=== PATIENT | male | born 1970 | race Caucasian/White ===

== ENCOUNTER 2017-10-31 10:11 | Inpatient (IN) | payer OTHER ==
[2017-10-31 10:48] VITALS: BMI 26.2
--- NOTE | 2017-10-31 14:53 | HP ---
CIWA Score - CIWA Score Nausea/Vomitin Muscle Tremors: 4-Moderate,w/Arms Extend Anxiety: 3 Agitation: 3 Paroxysmal Sweats: No Perspiration Orientation: 0-Oriented Tacttile Disturbances: 0-None Auditory Disturbances: 0-None Visual Disturbances: 0-None Headache: 0-None Present CIWA-Ar Total Score: [address] [facility] Chief Complaint: alcohol and benzodiazepine withdrawal sx Allergies/Adverse Reactions: Allergies Allergy/AdvReac Type Severity Reaction Status Date / Time No Known Allergies Allergy Verified 10/31/17 11:55 History of Present Illness: 47 yo m with h/o OUD, severe on otp 205mg daily ldm today was sent for inaptietn detoxification form alchol and benzoidazepines because of withdrwal sx when he does not use and h/o seizures, no h/o DTs or ERNST. PMHX anxiety, depressio and insomna , thristy. pateit is nodding off on current methadone dose of 205, will decrease dose by 10% to 180 while being detoxed with benzoidazepiens becasue of syneergistic effect. Exam Limitations: No Limitations - Ebola screening Have you traveled outside of the country in the last 21 days: No Have you had contact with anyone from an Ebola affected area: No Have you been sick,other than usual withdrawal symptoms: Yes Do you have a fever: No - Review of Systems Constitutional: Chills, Diaphoresis, Night Sweats, Changes in sleep, Weight Stable EENT: reports: No Symptoms Reported Respiratory: reports: No Symptoms reported Cardiac: reports: No Symptoms Reported GI: reports: Diarrhea, Nausea, Poor Appetite, Poor Fluid Intake, Indigestion, Abdominal cramping : reports: No Symptoms Reported Musculoskeletal: reports: No Symptoms Reported Integumentary: reports: Flushing, Sweating Endocrine: reports: Increased Thirst Hematology: reports: No Symptoms Reported Psychiatric: reports: Judgement Intact, Mood/Affect Appropiate, Orientated x3, Anxious, Depressed Other Systems: Reviewed and Negative Patient History - Patient Medical History Hx Anemia: No Hx Asthma: No Hx Chronic Obstructive Pulmonary Disease (COPD): No Hx Cancer: No Hx Cardiac Disorders: No Hx Congestive Heart Failure: No Hx Hypertension: Yes (not taking meds) Hx Hypercholesterolemia: Yes (not taking meds) Hx Pacemaker: No HX Cerebrovascular Accident: No Hx Seizures: Yes (r/t head trauma-last episode was in 2014, withdrawal seziures as well) Hx Dementia: No Hx Diabetes: Yes (currently not on treatment) Hx Gastrointestinal Disorders: No Hx Liver Disease: No Hx Genitourinary Disorders: No Hx Sexually Transmitted Disorders: No Hx Renal Disease (ESRD): No Hx Thyroid Disease: No Hx Human Immunodeficiency Virus (HIV): No Hx Hepatitis C: Yes (untreated) Hx Depression: Yes Hx Suicide Attempt: Yes (cut right wrist at age 20, si at this time) Hx Bipolar Disorder: Yes (no meds) Hx Schizophrenia: No - Patient Surgical History Past Surgical History: No Hx Neurologic Surgery: No Hx Cataract Extraction: No Hx Cardiac Surgery: No Hx Lung Surgery: No Hx Breast Surgery: No Hx Breast Biopsy: No Hx Abdominal Surgery: No Hx Appendectomy: No Hx Cholecystectomy: No Hx Genitourinary Surgery: No Hx Section: No Hx Orthopedic Surgery: No Anesthesia Reaction: No - PPD History Previous Implant?: Yes Documented Results: Negative w/o proof Implanted On Prior [facility] Admission?: No PPD to be Administered?: Yes - Reproductive History Patient is a Female of Child Bearing Age (11 -55 yrs old): No Patient : No - Smoking Cessation Smoking history: Current every day smoker Have you smoked in the past 12 months: Yes Aproximately how many cigarettes per day: 10 Hx Chewing Tobacco Use: No Initiated information on smoking cessation: Yes 'Breaking Loose' booklet given: 10/31/17 - Substance & Tx. History Hx Alcohol Use: Yes Hx Substance Use: Yes Substance Use Type: Alcohol, Cocaine, Heroin, Marijuana, Opiates, Prescribed, Tranquilizers Hx Substance Use Treatment: Yes (MMTP< first admission to [facility]) - Substances Abused Cocaine Route: Injection Frequency: Daily Amount used: $300 Age of first use: 16 Date of Last Use: 10/31/17 Alcohol-vodka/rum/beer Route: Oral Frequency: Daily Amount used: 3 pts./3-6 pks. Age of first use: 16 Date of Last Use: 10/30/17 Xanax Route: Oral Frequency: Daily Amount used: 4 mg. Age of first use: 45 Date of Last Use: 10/31/17 Family Disease History - Family Disease History Family History: Denies Admission Physical Exam [facility] - Vital Signs Vital Signs: Vital Signs - 24 hr 10/31/17 10:43 Temperature 97.6 F Pulse Rate 72 Respiratory 18 Rate Blood Pressure 123/83 - Physical General Appearance: Yes: Nourished, Appropriately Dressed, Disheveled, Mild Distress, Thin, Tremorous, Irritable, Sweating, Anxious HEENTM: Yes: Within Normal Limits, EOMI, Hearing grossly Normal, Normal ENT Inspection, Normocephalic, Normal Voice, MERCEDES, Pharynx Normal Respiratory: Yes: Within Normal Limits, Chest Non-Tender, Lungs Clear, Normal Breath Sounds, No Respiratory Distress, No Accessory Muscle Use Neck: Yes: Within Normal Limits, No masses,lesions,Nodules, Supple, Trachea in good position Breast: Yes: Breast Exam Deferred Cardiology: Yes: Within Normal Limits, Regular Rhythm, Regular Rate, S1, S2 Abdominal: Yes: Within Normal Limits, Normal Bowel Sounds, Non Tender, Flat, Soft, Increased Bowel Sounds Genitourinary: Yes: Within Normal Limits Back: Yes: Within Normal Limits, Normal Inspection Musculoskeletal: Yes: full range of Motion, Gait Steady, Pelvis Stable, Back pain, Joint Stiffness Extremities: Yes: Normal Capillary Refill, Normal Range of Motion, Non-Tender, Tremors Neurological: Yes: engineering technologist II-XII NML intact, Fully Oriented, Alert, Motor Strength 5/5, Normal Response, Depressed Affect Integumentary: Yes: Normal Color, Warm, Diaphoresis, Moist, Track Goss Lymphatic: Yes: Within Normal Limits - Addiitonal Findings: withdrawal sx - Diagnostic (1) Alcohol dependence with uncomplicated withdrawal Current Visit: Yes Status: Acute (2) Sedative, hypnotic or anxiolytic dependence with withdrawal, uncomplicated Current Visit: Yes Status: Acute (3) Opioid dependence on agonist therapy Current Visit: Yes Status: Acute (4) Intravenous drug user Current Visit: Yes Status: Acute (5) Hepatitis C Current Visit: Yes Status: Acute (6) Depression Current Visit: Yes Status: Acute (7) Dehydration Current Visit: Yes Status: Acute Cleared for Admission [facility] - Detox or Rehab [facility] Level of Care: Medically Managed Detox Regimen/Protocol: Valium [facility] Breath Alcohol Content Breath Alcohol Content: 0 Urine Drug Screen - Results Drug Screen Negative: No Urine Drug Screen Results: THC-Marijuana, FIDENCIO-Cocaine, BZO-Benzodiazepines, MTD- Methadone, TCA-Tricyclic Antidepress
[2017-10-31] MEDS ORDERED: MENTHOL/PHENOL 1 EACH UD MM PRN (14:57)
[2017-10-31] MEDS ORDERED: IBUPROFEN 400 MG TABLET (FP) PO PRN (14:57)
[2017-10-31] MEDS ORDERED: MAG HYDROX/AL HYDROX/SIMETH 30 ML UNIT-DOSE CUP PO PRN (14:57)
[2017-10-31] MEDS ORDERED: ACETAMINOPHEN 325 MG TABLET (FP) PO PRN (14:57)
[2017-10-31] MEDS ORDERED: MAGNESIUM HYDROX 2400MG/30ML ORAL SUSPENSION 30 ML CUP PO PRN (14:57)
[2017-10-31] MEDS ORDERED: P-EPHED 60MG/TRIPROLIDI 2.5MG TABLET PO PRN (14:57)
[2017-10-31] MEDS ORDERED: guaiFENesin/D-METHORPHAN HB 10 ML UNIT-DOSE CUPS PO PRN (14:57)
[2017-10-31] MEDS ORDERED: LOPERAMIDE HCL 2 MG CAPSULE PO PRN (14:57)
[2017-10-31] MEDS ORDERED: MAGNESIUM CITRATE 300 ML BOTTLE PO PRN (14:57)
[2017-10-31] MEDS ORDERED: NICOTINE POLACRILEX 2 MG GUM BUC PRN (14:57)
[2017-10-31] MEDS ORDERED: diazePAM 5 MG TABLET PO ONE (15:20)
[2017-10-31] MEDS: NICOTINE 14 MG/24 HOURS TOPICAL PATCH TD SCH (16:17)
--- NOTE | 2017-10-31 17:55 | PN ---
S Progress Note Note: Psychiatric nurse practitioner note: Flat Folder attempted to see patient for psychiatric consultation but patient was sedated and unable to answer questions. Psychiatric consultation deferred.
[2017-10-31] MEDS: diazePAM 5 MG TABLET PO PRN (18:04)
[2017-10-31 19:44] LABS: URINE APPEARANCE TURBID; URINE BILIRUBIN NEGATIVE (<2.0 mg/dL); URINE BLOOD NEGATIVE (NEGATIVE); URINE COLOR AMBER; URINE GLUCOSE (UA) NEGATIVE (NEGATIVE); URINE KETONE NEGATIVE (NEGATIVE); URINE LEUK ESTERASE TRACE (NEGATIVE); URINE NITRITE NEGATIVE (NEGATIVE); URINE PROTEIN NEGATIVE (NEGATIVE); URINE UROBILINOGEN 4.0 E.U/dl mg/dL (0.2-1.0)
[2017-10-31 20:15] LABS: EPI CELLS RARE /HPF (FEW); URINE MUCUS MANY
[2017-10-31] MEDS: diazePAM 5 MG TABLET PO SCH (22:44)
[2017-10-31] MEDS: MELATONIN 5 MG TABLETS PO PRN (22:44)
[2017-10-31] MEDS: THIAMINE HCL 100 MG TABLET (FP) PO SCH (22:44)
[2017-11-01] MEDS ORDERED: METHADONE HCL 10 MG TABLET ONE (04:30)
[2017-11-01] MEDS ORDERED: METHADONE HCL 40 MG DISPERSABLE TABLET ONE (04:30)
[2017-11-01] MEDS ORDERED: METHADONE HCL 10 MG TABLET PO SCH (06:00)
[2017-11-01] MEDS: diazePAM 5 MG TABLET PO SCH ×3 (06:00→22:43)
[2017-11-01] MEDS: METHADONE 160 MG, METHADONE 20 MG PO SCH (06:00)
[2017-11-01] MEDS ORDERED: TRIMETHOBENZAMIDE HCL 200MG/2ML INJ IM PRN (09:39)
--- NOTE | 2017-11-01 10:07 | EKG ---
Test Reason : Blood Pressure : / mmHG Vent. Rate : 062 BPM Atrial Rate : 062 BPM P-R Int : 158 ms QRS Dur : 094 ms QT Int : 472 ms P-R-T Axes : 054 059 064 degrees QTc Int : 479 ms NORMAL SINUS RHYTHM NORMAL ECG NO PREVIOUS ECGS AVAILABLE Confirmed by DARA SINGH MD ([id number]) on 11/01/2017 10:07:30 AM Referred By: Confirmed By:DARA SINGH MD
[2017-11-01 10:16] LABS: HEMOGLOBIN 13.2 GM/dL (11.7-16.9); MCH 31.5 pg (25.7-33.7); MCHC 33.8 g/dl (32.0-35.9); MEAN CELL VOLUME 93.2 fl (80-96); MEAN PLT VOLUME 10.9 fl (7.5-11.1); PLATELET COUNT 178 K/MM3 (134-434); RBC 4.19 M/mm3 (4.00-5.60); RDW 13.1 % (11.9-15.9); WHITE BLOOD COUNT 7.9 K/mm3 (4.0-10.0)
[2017-11-01 10:27] LABS: CHLORIDE 103 mmol/L (98-107); SODIUM 143 mmol/L (136-145)
[2017-11-01 10:36] LABS: ALBUMIN 3.6 g/dl (3.4-5.0); ALK PHOS 57 U/L (45-117); ANION GAP 7 (8-16); BILIRUBIN,TOTAL 0.2 mg/dL (0.2-1.0); BLOOD UREA NITROGEN 12 mg/dL (7-18); CALCIUM 8.5 mg/dL (8.5-10.1); CO2 33 mmol/L (21-32); CREATININE 0.8 mg/dL (0.7-1.3); GLUCOSE,RANDOM 109 mg/dL (74-106); SGOT/AST 22 U/L (15-37); SGPT/ALT 29 U/L (12-78); TOT PROT 6.9 g/dl (6.4-8.2)
[2017-11-01] MEDS: NICOTINE 14 MG/24 HOURS TOPICAL PATCH TD SCH (10:41)
[2017-11-01] MEDS: diazePAM 5 MG TABLET PO PRN ×3 (10:41→19:11)
[2017-11-01] MEDS: LIDOCAINE 5% TOPICAL PATCH TP SCH (10:41)
[2017-11-01] MEDS: PRENATAL VITAMINS W/ FOLIC ACID TABLET (FP) PO SCH (10:41)
--- NOTE | 2017-11-01 13:29 | PN ---
S CIWA - CIWA Score Nausea/Vomitin Muscle Tremors: 3 Anxiety: 3 Agitation: 1-Slight > Activity Paroxysmal Sweats: 3 Orientation: 0-Oriented Tacttile Disturbances: 0-None Auditory Disturbances: 0-None Visual Disturbances: 2-Mild Sensitivity Headache: 3-Moderate CIWA-Ar Total Score: 18 BHS Progress Note (SOAP) Subjective: Nausea, Diarrhea, Sweating, Tremors, H/A, Anxious, Stomach Cramping, Body Aches. Objective: PATIENT A & O X 3, OBSERVED AMBULATING ON UNIT. NO ACUTE DISTRESS. 11/01/17 13:27 Vital Signs Temperature 98.6 F 11/01/17 09:33 Pulse Rate 84 11/01/17 09:33 Respiratory Rate 18 11/01/17 09:33 Blood Pressure 117/74 11/01/17 09:33 O2 Sat by Pulse Oximetry (%) Laboratory Tests 10/31/17 10/31/17 11/01/17 12:28 19:00 05:50 WBC 7.9 RBC 4.19 Hgb 13.2 Hct 39.0 MCV 93.2 MCH 31.5 MCHC 33.8 RDW 13.1 Plt Count 178 MPV 10.9 Sodium Potassium Chloride Carbon Dioxide Anion Gap BUN Creatinine Creat Clearance w eGFR POC Glucometer 118 Random Glucose Calcium Total Bilirubin AST ALT Alkaline Phosphatase Total Protein Albumin Urine Color Shanae Urine Appearance Turbid Urine pH 5.0 Ur Specific [place] 1.024 Urine Protein Negative Urine Glucose (UA) Negative Urine Ketones Negative Urine Blood Negative Urine Nitrite Negative Urine Bilirubin Negative Urine Urobilinogen 4.0 e.u/dl Ur Leukocyte Esterase Trace Urine WBC (Auto) None Urine RBC (Auto) None Ur Epithelial Cells Rare Urine Mucus Many 11/01/17 11/01/17 05:50 06:02 WBC RBC Hgb Hct MCV MCH MCHC RDW Plt Count MPV Sodium 143 Potassium 4.0 Chloride 103 Carbon Dioxide 33 H Anion Gap 7 L BUN 12 Creatinine 0.8 Creat Clearance w eGFR > 60 POC Glucometer 129 Random Glucose 109 H Calcium 8.5 Total Bilirubin 0.2 AST 22 ALT 29 Alkaline Phosphatase 57 Total Protein 6.9 Albumin 3.6 Urine Color Urine Appearance Urine pH Ur Specific [place] Urine Protein Urine Glucose (UA) Urine Ketones Urine Blood Urine Nitrite Urine Bilirubin Urine Urobilinogen Ur Leukocyte Esterase Urine WBC (Auto) Urine RBC (Auto) Ur Epithelial Cells Urine Mucus LABS NOTED. RPR, HIV AB RESULTS PENDING. 11/01/17 13:28 Assessment: 11/01/17 13:27 WITHDRAWAL SYMPTOMS. Plan: CONTINUE DETOX. INCREASE DAILY PO FLUID INTAKE. PRN IMMODIUM FOR DIARRHEA.
--- NOTE | 2017-11-01 17:35 | CONSULT ---
[facility] Psychiatric Consult - Data Date of interview: 11/01/17 Admission source: [facility] Identifying data: First admission to [facility] for this 47 y/o male seeking detox treatment on for alcohol,xanax,marihuana,cocaine and opiod dependence.Patient is ,a father of five,homeless,unemployed and supported on SSI benefits. Substance Abuse History: Confirmed by the patient in this interview.Details in current [facility] report : Smoking history: Current every day smoker. Have you smoked in the past 12 months: Yes. Aproximately how many cigarettes per day: 10. Hx Chewing Tobacco Use: No. Initiated information on smoking cessation: Yes. 'Breaking Loose' booklet given: 10/31/17. - Substance & Tx. History. Hx Alcohol Use: Yes. Hx Substance Use: Yes. Substance Use Type: Alcohol, Cocaine , Heroin, Marijuana, Opiates, Prescribed, Tranquilizers. Hx Substance Use Treatment: Yes (MMTP< first admission to [facility]). - Substances Abused. Cocaine. Route: Injection. Frequency: Daily. Amount used: $300. Age of first use: 16. Date of Last Use: 10/31/17. Alcohol-vodka/rum/beer. Route: Oral. Frequency: Daily. Amount used: 3 pts./3-6 pks. Age of first use: 16. Date of Last Use: 10/30/17. Xanax. Route: Oral. Frequency: Daily. Amount used: 4 mg. Age of first use: 45. Date of Last Use: 10/31/17 Medical History: Diabetes mellitus,dyslipidemia,antecedent of head trauma and seizures,hepatitis C (untreated) and hypertension.No reported allergies. Psychiatric History: Patient admits to a history of 3-5 psychiatric hospitalizations ([facility]).Early onset of mental illness (age 10).Diagnosed with Schizophrenia.Mr Armijo reports that he gets his psychiatric outpatient services at the [facility] clinic on [address] [place].Patient is maintained on a regimen of lexapro 20 mg/day + trilafon 24 mg po bid (confirmed by pharmacy claims of 10/24/17 @ [facility]).Recently discharged from an inpatient psychiatric service.Three months ago,as per self- report.Patient admits to a remote history os suicide attempt (ag 20) via self- mutilation (wrist-cutting).Currently on methadone maintenance (205 mg/day).Dose has been lowered to 180 mg/day since admission to [address] [place] [address] due to oversedation. Physical/Sexual Abuse/Trauma History: Patient denies history of abuse. Additional Comment: Urine Drug Screen Results: THC-Marijuana, FIDENCIO-Cocaine, BZO- Benzodiazepines, MTD-Methadone, TCA-Tricyclic Antidepressant.Noted. Mental Status Exam - Mental Status Exam Alert and Oriented to: Time, Place, Person Cognitive Function: Grossly Intact Patient Appearance: Disheveled Mood: Nervous, Withdrawn Affect: Mood Congruent, Constricted Patient Behavior: Fatigued, Talkative, Cooperative Speech Pattern: Clear (slow,spontaneous) Voice Loudness: Normal Thought Process: Goal Oriented Thought Disorder: Not Present Hallucinations: Denies Suicidal Ideation: Denies Homicidal Ideation: Denies Insight/Judgement: Poor Sleep: Well Appetite: Good Muscle strength/Tone: Normal Gait/Station: Normal (observed ambulatiing on the unit) Psychiatric Findings - Problem List ([place] 1, 2,3) (1) Schizophrenia Current Visit: Yes Status: Chronic (2) Alcohol dependence with uncomplicated withdrawal Current Visit: Yes Status: Acute (3) Opioid dependence on agonist therapy Current Visit: Yes Status: Acute (4) Sedative, hypnotic or anxiolytic dependence with withdrawal, uncomplicated Current Visit: Yes Status: Acute (5) Cannabis dependence Current Visit: Yes Status: Acute (6) Cocaine dependence Current Visit: Yes Status: Acute - Initial Treatment Plan Initial Treatment Plan: Psychoeducation.Sleep hygiene.Detoxification in progress.Will hold trilafon for another 24 hours and observe.If further improvement of cognition in AM,will resume trilafon at 8 mg po bid + lexapro 20 mg po daily.Discussed with the patient.Mr Armijo has expressed his agreement to this plan of care.Observation.
[2017-11-01] MEDS: hydrOXYzine PAMOATE 25 MG CAPSULE (FP) PO PRN (17:38)
[2017-11-01] MEDS: THIAMINE HCL 100 MG TABLET (FP) PO SCH (22:43)
[2017-11-01] MEDS: MELATONIN 5 MG TABLETS PO PRN (22:43)
[2017-11-01] MEDS: LIDOCAINE PATCH REMOVAL MC SCH (22:43)
[2017-11-02] MEDS: diazePAM 5 MG TABLET PO PRN ×2 (02:17→16:38)
[2017-11-02] MEDS ORDERED: METHADONE HCL 40 MG DISPERSABLE TABLET ONE (03:59)
[2017-11-02] MEDS ORDERED: METHADONE HCL 10 MG TABLET ONE (03:59)
[2017-11-02] MEDS: METHADONE 160 MG, METHADONE 20 MG PO SCH (05:30)
[2017-11-02] MEDS: diazePAM 5 MG TABLET PO SCH ×2 (10:31→22:43)
[2017-11-02] MEDS: LIDOCAINE 5% TOPICAL PATCH TP SCH (10:32)
[2017-11-02] MEDS: PRENATAL VITAMINS W/ FOLIC ACID TABLET (FP) PO SCH (10:32)
[2017-11-02] MEDS: NICOTINE 14 MG/24 HOURS TOPICAL PATCH TD SCH (10:32)
--- NOTE | 2017-11-02 15:02 | PN ---
S CIWA - CIWA Score Nausea/Vomitin Muscle Tremors: 3 Anxiety: 2 Agitation: 0-Normal Activity Paroxysmal Sweats: 3 Orientation: 2-Disoriented Date<2 days Tacttile Disturbances: 1-Very Mild Itch/Numbness Auditory Disturbances: 0-None Visual Disturbances: 1-Very Mild Sensitivity Headache: 0-None Present CIWA-Ar Total Score: 17 BHS Progress Note (SOAP) Subjective: Vomiting, H/A, Stomach Cramping, Sweating, Tremors, Fatigue, Diarrhea. Objective: PATIENT A & O X 2 (UNCERTAIN ABOUT CURRENT DAY / DATE). NO ACUTE DISTRESS. 11/02/17 15:00 Vital Signs Temperature 97.0 F L 11/02/17 13:14 Pulse Rate 85 11/02/17 13:14 Respiratory Rate 18 11/02/17 13:14 Blood Pressure 103/71 11/02/17 13:14 O2 Sat by Pulse Oximetry (%) Laboratory Tests 10/31/17 10/31/17 10/31/17 12:15 12:28 19:00 WBC RBC Hgb Hct MCV MCH MCHC RDW Plt Count MPV Sodium Potassium Chloride Carbon Dioxide Anion Gap BUN Creatinine Creat Clearance w eGFR POC Glucometer 118 Random Glucose Calcium Total Bilirubin AST ALT Alkaline Phosphatase Total Protein Albumin Urine Color Shanae Urine Appearance Turbid Urine pH 5.0 Ur Specific [place] 1.024 Urine Protein Negative Urine Glucose (UA) Negative Urine Ketones Negative Urine Blood Negative Urine Nitrite Negative Urine Bilirubin Negative Urine Urobilinogen 4.0 e.u/dl Ur Leukocyte Esterase Trace Urine WBC (Auto) None Urine RBC (Auto) None Ur Epithelial Cells Rare Urine Mucus Many RPR Titer HIV 1&2 Antibody Screen Negative HIV P24 Antigen Negative 11/01/17 11/01/17 11/01/17 05:50 05:50 05:50 WBC 7.9 RBC 4.19 Hgb 13.2 Hct 39.0 MCV 93.2 MCH 31.5 MCHC 33.8 RDW 13.1 Plt Count 178 MPV 10.9 Sodium 143 Potassium 4.0 Chloride 103 Carbon Dioxide 33 H Anion Gap 7 L BUN 12 Creatinine 0.8 Creat Clearance w eGFR > 60 POC Glucometer Random Glucose 109 H Calcium 8.5 Total Bilirubin 0.2 AST 22 ALT 29 Alkaline Phosphatase 57 Total Protein 6.9 Albumin 3.6 Urine Color Urine Appearance Urine pH Ur Specific [place] Urine Protein Urine Glucose (UA) Urine Ketones Urine Blood Urine Nitrite Urine Bilirubin Urine Urobilinogen Ur Leukocyte Esterase Urine WBC (Auto) Urine RBC (Auto) Ur Epithelial Cells Urine Mucus RPR Titer Nonreactive HIV 1&2 Antibody Screen HIV P24 Antigen 11/01/17 06:02 WBC RBC Hgb Hct MCV MCH MCHC RDW Plt Count MPV Sodium Potassium Chloride Carbon Dioxide Anion Gap BUN Creatinine Creat Clearance w eGFR POC Glucometer 129 Random Glucose Calcium Total Bilirubin AST ALT Alkaline Phosphatase Total Protein Albumin Urine Color Urine Appearance Urine pH Ur Specific [place] Urine Protein Urine Glucose (UA) Urine Ketones Urine Blood Urine Nitrite Urine Bilirubin Urine Urobilinogen Ur Leukocyte Esterase Urine WBC (Auto) Urine RBC (Auto) Ur Epithelial Cells Urine Mucus RPR Titer HIV 1&2 Antibody Screen HIV P24 Antigen LABS NOTED. Assessment: 11/02/17 15:00 WITHDRAWAL SYMPTOMS. Plan: CONTINUE DETOX. PRN TIGAN IM FOR VOMITING. ENCOURAGE AMBULATION. INCREASE DAILY PO FLUID INTAKE.
[2017-11-02] MEDS: THIAMINE HCL 100 MG TABLET (FP) PO SCH (22:43)
[2017-11-02] MEDS: LIDOCAINE PATCH REMOVAL MC SCH (22:43)
[2017-11-02] MEDS: MELATONIN 5 MG TABLETS PO PRN (22:45)
[2017-11-03] MEDS ORDERED: METHADONE HCL 10 MG TABLET ONE (04:10)
[2017-11-03] MEDS ORDERED: METHADONE HCL 40 MG DISPERSABLE TABLET ONE (04:11)
[2017-11-03] MEDS: METHADONE 160 MG, METHADONE 20 MG PO SCH (05:42)
[2017-11-03] MEDS: diazePAM 5 MG TABLET PO PRN ×2 (07:13→12:57)
[2017-11-03] MEDS: PRENATAL VITAMINS W/ FOLIC ACID TABLET (FP) PO SCH (10:39)
[2017-11-03] MEDS: LIDOCAINE 5% TOPICAL PATCH TP SCH (10:39)
[2017-11-03] MEDS: NICOTINE 14 MG/24 HOURS TOPICAL PATCH TD SCH (10:39)
[2017-11-03] MEDS: diazePAM 5 MG TABLET PO SCH ×2 (10:39→22:41)
[2017-11-03] MEDS: hydrOXYzine PAMOATE 25 MG CAPSULE (FP) PO PRN (15:05)
--- NOTE | 2017-11-03 16:08 | PN ---
BHS Progress Note (SOAP) Subjective: Chills, sweating, back pain, stomach ache Objective: 11/03/17 16:07 Last Vital Signs Temp Pulse Resp BP Pulse Ox 96 F L 80 20 101/72 11/03/17 14:35 11/03/17 14:35 11/03/17 14:35 11/03/17 14:35 Laboratory Tests 10/31/17 10/31/17 10/31/17 12:15 12:28 19:00 WBC RBC Hgb Hct MCV MCH MCHC RDW Plt Count MPV Sodium Potassium Chloride Carbon Dioxide Anion Gap BUN Creatinine Creat Clearance w eGFR POC Glucometer 118 Random Glucose Calcium Total Bilirubin AST ALT Alkaline Phosphatase Total Protein Albumin Urine Color Shanae Urine Appearance Turbid Urine pH 5.0 Ur Specific [place] 1.024 Urine Protein Negative Urine Glucose (UA) Negative Urine Ketones Negative Urine Blood Negative Urine Nitrite Negative Urine Bilirubin Negative Urine Urobilinogen 4.0 e.u/dl Ur Leukocyte Esterase Trace Urine WBC (Auto) None Urine RBC (Auto) None Ur Epithelial Cells Rare Urine Mucus Many RPR Titer HIV 1&2 Antibody Screen Negative HIV P24 Antigen Negative 11/01/17 11/01/17 11/01/17 05:50 05:50 05:50 WBC 7.9 RBC 4.19 Hgb 13.2 Hct 39.0 MCV 93.2 MCH 31.5 MCHC 33.8 RDW 13.1 Plt Count 178 MPV 10.9 Sodium 143 Potassium 4.0 Chloride 103 Carbon Dioxide 33 H Anion Gap 7 L BUN 12 Creatinine 0.8 Creat Clearance w eGFR > 60 POC Glucometer Random Glucose 109 H Calcium 8.5 Total Bilirubin 0.2 AST 22 ALT 29 Alkaline Phosphatase 57 Total Protein 6.9 Albumin 3.6 Urine Color Urine Appearance Urine pH Ur Specific [place] Urine Protein Urine Glucose (UA) Urine Ketones Urine Blood Urine Nitrite Urine Bilirubin Urine Urobilinogen Ur Leukocyte Esterase Urine WBC (Auto) Urine RBC (Auto) Ur Epithelial Cells Urine Mucus RPR Titer Nonreactive HIV 1&2 Antibody Screen HIV P24 Antigen 11/01/17 06:02 WBC RBC Hgb Hct MCV MCH MCHC RDW Plt Count MPV Sodium Potassium Chloride Carbon Dioxide Anion Gap BUN Creatinine Creat Clearance w eGFR POC Glucometer 129 Random Glucose Calcium Total Bilirubin AST ALT Alkaline Phosphatase Total Protein Albumin Urine Color Urine Appearance Urine pH Ur Specific [place] Urine Protein Urine Glucose (UA) Urine Ketones Urine Blood Urine Nitrite Urine Bilirubin Urine Urobilinogen Ur Leukocyte Esterase Urine WBC (Auto) Urine RBC (Auto) Ur Epithelial Cells Urine Mucus RPR Titer HIV 1&2 Antibody Screen HIV P24 Antigen Labs reviewed Assessment: 11/03/17 16:08 Withdrawal symptoms Plan: Continue detox Encouraged to drink more water for hydration
[2017-11-03] MEDS: LIDOCAINE PATCH REMOVAL MC SCH (22:41)
[2017-11-03] MEDS: THIAMINE HCL 100 MG TABLET (FP) PO SCH (22:41)
[2017-11-04] MEDS: hydrOXYzine PAMOATE 25 MG CAPSULE (FP) PO PRN (01:43)
[2017-11-04] MEDS ORDERED: METHADONE HCL 10 MG TABLET ONE (04:17)
[2017-11-04] MEDS ORDERED: METHADONE HCL 40 MG DISPERSABLE TABLET ONE (04:19)
[2017-11-04] MEDS: METHADONE 160 MG, METHADONE 20 MG PO SCH (05:46)
[2017-11-04 09:30] VITALS: BP 101/68; PULSE 67; TEMP 96
[2017-11-04] MEDS ORDERED: diazePAM 5 MG TABLET PO SCH (10:00)
[2017-11-04] MEDS: NICOTINE 14 MG/24 HOURS TOPICAL PATCH TD SCH (10:22)
[2017-11-04] MEDS: PRENATAL VITAMINS W/ FOLIC ACID TABLET (FP) PO SCH (10:22)
[2017-11-04] MEDS: LIDOCAINE 5% TOPICAL PATCH TP SCH (10:22)
--- NOTE | 2017-11-04 11:57 | PN ---
S Progress Note (SOAP) Subjective: DETOX COMPLETED, ALERT O X 3. NAD. Objective: 11/04/17 11:56 Vital Signs Temperature 96.0 F L 11/04/17 09:29 Pulse Rate 67 11/04/17 09:29 Respiratory Rate 18 11/04/17 09:29 Blood Pressure 101/68 11/04/17 09:29 O2 Sat by Pulse Oximetry (%) Laboratory Last Values WBC 7.9 K/mm3 (4.0-10.0) 11/01/17 05:50 RBC 4.19 M/mm3 (4.00-5.60) 11/01/17 05:50 Hgb 13.2 GM/dL (11.7-16.9) 11/01/17 05:50 Hct 39.0 % (35.4-49) 11/01/17 05:50 MCV 93.2 fl (80-96) 11/01/17 05:50 MCH 31.5 pg (25.7-33.7) 11/01/17 05:50 MCHC 33.8 g/dl (32.0-35.9) 11/01/17 05:50 RDW 13.1 % (11.9-15.9) 11/01/17 05:50 Plt Count 178 K/MM3 (134-434) 11/01/17 05:50 MPV 10.9 fl (7.5-11.1) 11/01/17 05:50 Sodium 143 mmol/L (136-145) 11/01/17 05:50 Potassium 4.0 mmol/L (3.5-5.1) 11/01/17 05:50 Chloride 103 mmol/L (98-107) 11/01/17 05:50 Carbon Dioxide 33 mmol/L (21-32) H 11/01/17 05:50 Anion Gap 7 (8-16) L 11/01/17 05:50 BUN 12 mg/dL (7-18) 11/01/17 05:50 Creatinine 0.8 mg/dL (0.7-1.3) 11/01/17 05:50 Creat Clearance w eGFR > 60 (>60) 11/01/17 05:50 POC Glucometer 129 UNITS (80-120) 11/01/17 06:02 Random Glucose 109 mg/dL (74-106) H 11/01/17 05:50 Calcium 8.5 mg/dL (8.5-10.1) 11/01/17 05:50 Total Bilirubin 0.2 mg/dL (0.2-1.0) 11/01/17 05:50 AST 22 U/L (15-37) 11/01/17 05:50 ALT 29 U/L (12-78) 11/01/17 05:50 Alkaline Phosphatase 57 U/L (45-117) 11/01/17 05:50 Total Protein 6.9 g/dl (6.4-8.2) 11/01/17 05:50 Albumin 3.6 g/dl (3.4-5.0) 11/01/17 05:50 Urine Color Shanae 10/31/17 19:00 Urine Appearance Turbid 10/31/17 19:00 Urine pH 5.0 (5.0-8.0) 10/31/17 19:00 Ur Specific [place] 1.024 (1.001-1.035) 10/31/17 19:00 Urine Protein Negative (NEGATIVE) 10/31/17 19:00 Urine Glucose (UA) Negative (NEGATIVE) 10/31/17 19:00 Urine Ketones Negative (NEGATIVE) 10/31/17 19:00 Urine Blood Negative (NEGATIVE) 10/31/17 19:00 Urine Nitrite Negative (NEGATIVE) 10/31/17 19:00 Urine Bilirubin Negative (<2.0 mg/dL) 10/31/17 19:00 Urine Urobilinogen 4.0 e.u/dl mg/dL (0.2-1.0) 10/31/17 19:00 Ur Leukocyte Esterase Trace (NEGATIVE) 10/31/17 19:00 Urine WBC (Auto) None /hpf (3-5) 10/31/17 19:00 Urine RBC (Auto) None /hpf (0-3) 10/31/17 19:00 Ur Epithelial Cells Rare /HPF (FEW) 10/31/17 19:00 Urine Mucus Many 10/31/17 19:00 RPR Titer Nonreactive (NONREACTIVE) 11/01/17 05:50 HIV 1&2 Antibody Screen Negative 10/31/17 12:15 HIV P24 Antigen Negative 10/31/17 12:15 Assessment: 11/04/17 11:56 NAD Plan: D/C PT TODAY
== END 2017-11-04 11:15 | disposition home or self-care (01) | DRG 773 ==
LOC: YASAS 10:11 → Y3N 15:12
PROVIDERS: ADMIT Internal Medicine; ATTEND Internal Medicine
PROC: HZ2ZZZZ Detoxification Services for Substance Abuse Treatment (ICD-10-PCS; principal; 2017-10-31)
DX: F11.20 Opioid dependence, uncomplicated (principal); F13.230 Sedative, hypnotic or anxiolytic dependence with withdrawal, uncomplicated; F10.230 Alcohol dependence with withdrawal, uncomplicated; F14.20 Cocaine dependence, uncomplicated; F12.20 Cannabis dependence, uncomplicated; F31.9 Bipolar disorder, unspecified; F25.9 Schizoaffective disorder, unspecified; B18.2 Chronic viral hepatitis C; E86.0 Dehydration; Z86.69 Personal history of other diseases of the nervous system and sense organs; Z91.5 Personal history of self-harm
CPT/HCPCS: 36415; 80053; 81003; 81015; 82962; 85027; 86593; 87389; 93005; 93010

== ENCOUNTER 2017-12-19 13:43 | Inpatient (IN) | payer OTHER ==
[2017-12-19 17:30] VITALS: BMI 25.0
--- NOTE | 2017-12-19 19:06 | HP ---
Admission [facility] Chief Complaint: I need to get my life back. Allergies/Adverse Reactions: Allergies Allergy/AdvReac Type Severity Reaction Status Date / Time No Known Allergies Allergy Verified 12/19/17 17:44 History of Present Illness: pt is a 47yr old male with a history of crack/cocaine. Pt is on MMTP program last dose received today with 185mg. Pending verification. Exam Limitations: No Limitations - Ebola screening Have you traveled outside of the country in the last 21 days: No Have you had contact with anyone from an Ebola affected area: No Have you been sick,other than usual withdrawal symptoms: No Do you have a fever: No - Review of Systems Constitutional: Chills EENT: reports: No Symptoms Reported Respiratory: reports: No Symptoms reported Cardiac: reports: No Symptoms Reported GI: reports: Poor Appetite, Poor Fluid Intake : reports: No Symptoms Reported Integumentary: reports: Flushing, Sweating Endocrine: reports: Excessive Sweating, Flushing, Intolerance to Cold, Intolerance to Heat Hematology: reports: No Symptoms Reported Psychiatric: reports: Judgement Intact, Mood/Affect Appropiate, Orientated x3, Agitated, Anxious Other Systems: Reviewed and Negative Patient History - Patient Medical History Hx Anemia: No Hx Asthma: No Hx Chronic Obstructive Pulmonary Disease (COPD): No Hx Cancer: No Hx Cardiac Disorders: No Hx Congestive Heart Failure: No Hx Hypertension: Yes (not taking meds) Hx Hypercholesterolemia: Yes (not taking meds) Hx Pacemaker: No HX Cerebrovascular Accident: No Hx Seizures: Yes (r/t head trauma-last episode was in 2014, withdrawal seziures as well) Hx Dementia: No Hx Diabetes: Yes (currently not on treatment) Hx Gastrointestinal Disorders: No Hx Liver Disease: No Hx Genitourinary Disorders: No Hx Sexually Transmitted Disorders: No Hx Renal Disease (ESRD): No Hx Thyroid Disease: No Hx Human Immunodeficiency Virus (HIV): No Hx Hepatitis C: Yes (untreated) Hx Depression: Yes Hx Suicide Attempt: Yes (cut right wrist at age 20, si at this time) Hx Bipolar Disorder: Yes (no meds) Hx Schizophrenia: No - Patient Surgical History Past Surgical History: No Hx Neurologic Surgery: No Hx Cataract Extraction: No Hx Cardiac Surgery: No Hx Lung Surgery: No Hx Breast Surgery: No Hx Breast Biopsy: No Hx Abdominal Surgery: No Hx Appendectomy: No Hx Cholecystectomy: No Hx Genitourinary Surgery: No Hx Section: No Hx Orthopedic Surgery: No Anesthesia Reaction: No - PPD History Previous Implant?: Yes Documented Results: Negative w/proof Date: 11/02/17 PPD to be Administered?: No - Reproductive History Patient is a Female of Child Bearing Age (11 -55 yrs old): No - Smoking Cessation Smoking history: Current every day smoker Have you smoked in the past 12 months: Yes Aproximately how many cigarettes per day: 10 Hx Chewing Tobacco Use: No Initiated information on smoking cessation: Yes 'Breaking Loose' booklet given: 12/19/17 - Substance & Tx. History Hx Alcohol Use: No Hx Substance Use: Yes Substance Use Type: Cocaine Hx Substance Use Treatment: Yes (last detox 10/2017) - Substances Abused Crack Route: Smoking Frequency: Daily Amount used: $50 Age of first use: 13 Date of Last Use: 12/18/17 Family Disease History - Family Disease History Family History: Denies Admission Physical Exam BHS - Vital Signs Vital Signs: Vital Signs - 24 hr 12/19/17 17:17 Temperature 98 F Pulse Rate 63 Respiratory 20 Rate Blood Pressure 137/88 - Physical General Appearance: Yes: Appropriately Dressed, Moderate Distress, Sweating, Anxious HEENTM: Yes: Hearing grossly Normal, Normal Voice Respiratory: Yes: Lungs Clear, Normal Breath Sounds, No Respiratory Distress Neck: Yes: No masses,lesions,Nodules Breast: Yes: Within Normal Limits Cardiology: Yes: Regular Rhythm, Regular Rate, S1, S2 Abdominal: Yes: Normal Bowel Sounds, Non Tender, Flat Genitourinary: Yes: Within Normal Limits Back: Yes: Normal Inspection Musculoskeletal: Yes: full range of Motion Extremities: Yes: Normal Capillary Refill, Tremors Neurological: Yes: Fully Oriented, Alert, Normal Response Integumentary: Yes: Normal Color Lymphatic: Yes: Within Normal Limits - Diagnostic (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 Status: Chronic (2) Cannabis dependence Current Visit: Yes Status: Chronic (3) Nicotine dependence Current Visit: Yes Status: Chronic Qualifiers: Nicotine product type: cigarettes Substance use status: uncomplicated Qualified Code(s): F17.210 - Nicotine dependence, cigarettes, uncomplicated (4) Cocaine dependence Current Visit: Yes Status: Chronic Qualifiers: Substance use status: uncomplicated (5) Hepatitis C Current Visit: Yes Status: Chronic Qualifiers: Viral hepatitis chronicity: chronic Hepatic coma status: without hepatic coma Qualified Code(s): B18.2 - Chronic viral hepatitis C Cleared for Admission S - Detox or Rehab [facility] Level of Care: Medically Managed [facility] Breath Alcohol Content Breath Alcohol Content: 0 Urine Drug Screen - Results Drug Screen Negative: No Urine Drug Screen Results: THC-Marijuana, FIDENCIO-Cocaine, BZO-Benzodiazepines Inpatient Rehab Admission - Initial Determination Are CD services needed?: Yes Free of communicable disease: Yes Not in need of hospitalization: Yes - Rehab Admission Criteria Previous failed treatment: Yes Comorbidities: Yes Lacks judgement: Yes
[2017-12-19] MEDS ORDERED: MAG HYDROX/AL HYDROX/SIMETH 30 ML UNIT-DOSE CUP PO PRN (19:07)
[2017-12-19] MEDS ORDERED: P-EPHED 60MG/TRIPROLIDI 2.5MG TABLET PO PRN (19:07)
[2017-12-19] MEDS ORDERED: MAGNESIUM CITRATE 300 ML BOTTLE PO PRN (19:07)
[2017-12-19] MEDS ORDERED: NICOTINE POLACRILEX 4 MG GUM BUC PRN (19:07)
[2017-12-19] MEDS ORDERED: LOPERAMIDE HCL 2 MG CAPSULE PO PRN (19:07)
[2017-12-19] MEDS ORDERED: guaiFENesin/D-METHORPHAN HB 10 ML UNIT-DOSE CUPS PO PRN (19:07)
[2017-12-19] MEDS ORDERED: MAGNESIUM HYDROX 2400MG/30ML ORAL SUSPENSION 30 ML CUP PO PRN (19:07)
[2017-12-19] MEDS ORDERED: ACETAMINOPHEN 325 MG TABLET (FP) PO PRN (19:09)
[2017-12-19] MEDS ORDERED: MENTHOL/PHENOL 1 EACH UD MM PRN (19:11)
[2017-12-19] MEDS: THIAMINE HCL 100 MG TABLET (FP) PO SCH (21:32)
[2017-12-19] MEDS: hydrOXYzine PAMOATE 50 MG CAPSULE (FP) PO PRN (21:34)
[2017-12-19] MEDS: MELATONIN 5 MG TABLETS PO PRN (21:34)
[2017-12-20] MEDS ORDERED: METHADONE HCL 10 MG TABLET PO SCH (07:45)
[2017-12-20] MEDS ORDERED: METHADONE HCL 10 MG TABLET ONE (07:54)
[2017-12-20] MEDS ORDERED: METHADONE HCL 40 MG DISPERSABLE TABLET ONE (07:54)
[2017-12-20] MEDS ORDERED: METHADONE HCL 5 MG TABLET ONE (07:54)
[2017-12-20] MEDS: METHADONE 160 MG, METHADONE 20 MG, METHADONE 5 MG PO SCH (10:01)
[2017-12-20] MEDS: NICOTINE 21 MG/24 HOURS TOPICAL PATCH TD SCH (10:02)
[2017-12-20] MEDS: PRENATAL VITAMINS W/ FOLIC ACID TABLET (FP) PO SCH (10:02)
[2017-12-20 10:06] LABS: HEMATOCRIT 40.7 % (35.4-49); HEMOGLOBIN 13.5 GM/dL (11.7-16.9); MCHC 33.1 g/dl (32.0-35.9); MEAN CELL VOLUME 93.5 fl (80-96); MEAN PLT VOLUME 10.1 fl (7.5-11.1); PLATELET COUNT 161 K/MM3 (134-434); RBC 4.35 M/mm3 (4.00-5.60); RDW 13.4 % (11.9-15.9); WHITE BLOOD COUNT 8.4 K/mm3 (4.0-10.0)
[2017-12-20 10:30] LABS: CHLORIDE 103 mmol/L (98-107); POTASSIUM 4.1 mmol/L (3.5-5.1); SODIUM 142 mmol/L (136-145)
[2017-12-20 11:05] LABS: ALBUMIN 3.4 g/dl (3.4-5.0); ALK PHOS 56 U/L (45-117); ANION GAP 7 (8-16); BILIRUBIN,TOTAL 0.5 mg/dL (0.2-1.0); BLOOD UREA NITROGEN 14 mg/dL (7-18); CO2 32 mmol/L (21-32); CREATININE 0.9 mg/dL (0.7-1.3); GLUCOSE,RANDOM 152 mg/dL (74-106); SGOT/AST 20 U/L (15-37); SGPT/ALT 19 U/L (12-78); TOT PROT 6.7 g/dl (6.4-8.2)
--- NOTE | 2017-12-20 11:27 | EKG ---
Test Reason : Blood Pressure : / mmHG Vent. Rate : 062 BPM Atrial Rate : 062 BPM P-R Int : 190 ms QRS Dur : 094 ms QT Int : 410 ms P-R-T Axes : 067 070 076 degrees QTc Int : 416 ms NORMAL SINUS RHYTHM NORMAL ECG WHEN COMPARED WITH ECG OF 31-OCT-2017 15:50, QT HAS SHORTENED Confirmed by JYOTI ELLINGTON MD ([id number]) on 12/20/2017 11:27:17 AM Referred By: Confirmed By:JYOTI ELLINGTON MD
--- NOTE | 2017-12-20 12:05 | HP ---
Psychiatrist Admission - Data Date of interview: 12/20/17 Admission source: 3N Identifying data: This is the first 5N inpatient rehabilitation admission for this 47 year male who is ,a father of five,homeless, unemployed and supported on SSI benefits. Medical History: Diabetes mellitus,dyslipidemia,antecedent of head trauma and seizures,hepatitis C (untreated) and hypertension. Smokes cigarettes 10 a day. On MMTP 180 mg/daily. Psychiatric History: Patient reports was diagnosed with Schizophrenia and first psychiatric contact at age of 10. He admits was hospitalizaed 4-5 times ( [facility]) most recent hospitalization 3 months ago, he is under the care of [facility] in the [place] and currently on trilophan 8 mg am and 16 mg po hs Physical/Sexual Abuse/Trauma History: denies history of abuse Vital Signs: Vital Signs - 24 hr 12/19/17 12/19/17 12/20/17 17:17 22:21 00:30 Temperature 98 F 98.4 F Pulse Rate 63 57 L Respiratory 20 18 18 Rate Blood Pressure 137/88 116/79 12/20/17 12/20/17 03:30 06:40 Temperature 98.0 F Pulse Rate 52 L Respiratory 18 16 Rate Blood Pressure 120/73 Allergies/Adverse Reactions: Allergies Allergy/AdvReac Type Severity Reaction Status Date / Time No Known Allergies Allergy Verified 12/19/17 17:44 Date of last physical exam: 12/19/17 Concur with the findings of this exam: Yes - Substance Abuse/Tx History Hx Alcohol Use: Yes Hx Substance Use: Yes Substance Use Type: Alcohol, Cocaine, Heroin Hx Substance Use Treatment: Yes Mental Status Exam - Mental Status Exam Alert and Oriented to: Time, Place, Person Cognitive Function: Good Patient Appearance: Well Groomed Mood: Hopeful Affect: Appropriate, Mood Congruent Patient Behavior: Appropriate, Cooperative Speech Pattern: Clear, Appropriate Voice Loudness: Normal Thought Process: Intact, Goal Oriented Thought Disorder: Not Present Hallucinations: Denies Suicidal Ideation: Denies Insight/Judgement: Fair Appetite: Good Muscle strength/Tone: Normal Gait/Station: Normal Psychiatric Findings - Problem List ([place] 1, 2,3) (1) Cocaine dependence Current Visit: Yes Status: Chronic Qualifiers: Substance use status: uncomplicated (2) Methadone maintenance therapy patient Current Visit: Yes Status: Chronic (3) Nicotine dependence Current Visit: Yes Status: Chronic Qualifiers: Nicotine product type: cigarettes Substance use status: uncomplicated Qualified Code(s): F17.210 - Nicotine dependence, cigarettes, uncomplicated (4) Opioid dependence on agonist therapy Current Visit: No Status: Acute (5) Schizophrenia Current Visit: No Status: Chronic - Initial Treatment Plan Initial Treatment Plan: Will continue current medications , monitor progress as needed.
[2017-12-20] MEDS: PERPHENAZINE 4 MG TABLET PO SCH (21:15)
[2017-12-20] MEDS: MELATONIN 5 MG TABLETS PO PRN (21:16)
[2017-12-20] MEDS: THIAMINE HCL 100 MG TABLET (FP) PO SCH (21:16)
[2017-12-21] MEDS ORDERED: METHADONE HCL 5 MG TABLET ONE (05:05)
[2017-12-21] MEDS ORDERED: METHADONE HCL 10 MG TABLET ONE (05:06)
[2017-12-21] MEDS ORDERED: METHADONE HCL 40 MG DISPERSABLE TABLET ONE (05:06)
[2017-12-21] MEDS: METHADONE 160 MG, METHADONE 20 MG, METHADONE 5 MG PO SCH (06:45)
[2017-12-21] MEDS: IBUPROFEN 400 MG TABLET (FP) PO PRN (07:19)
[2017-12-21] MEDS: NICOTINE 21 MG/24 HOURS TOPICAL PATCH TD SCH (10:15)
[2017-12-21] MEDS: PRENATAL VITAMINS W/ FOLIC ACID TABLET (FP) PO SCH (10:15)
[2017-12-21] MEDS: PERPHENAZINE 4 MG TABLET PO SCH ×2 (10:15→21:21)
[2017-12-21] MEDS: hydrOXYzine PAMOATE 50 MG CAPSULE (FP) PO PRN ×4 (10:17→22:19)
[2017-12-21] MEDS: THIAMINE HCL 100 MG TABLET (FP) PO SCH (21:21)
[2017-12-22] MEDS ORDERED: METHADONE HCL 10 MG TABLET ONE (05:10)
[2017-12-22] MEDS ORDERED: METHADONE HCL 5 MG TABLET ONE (05:10)
[2017-12-22] MEDS ORDERED: METHADONE HCL 40 MG DISPERSABLE TABLET ONE (05:11)
[2017-12-22] MEDS: METHADONE 160 MG, METHADONE 20 MG, METHADONE 5 MG PO SCH (07:09)
[2017-12-22] MEDS: PERPHENAZINE 4 MG TABLET PO SCH ×2 (09:48→21:18)
[2017-12-22] MEDS: PRENATAL VITAMINS W/ FOLIC ACID TABLET (FP) PO SCH (09:48)
[2017-12-22] MEDS: hydrOXYzine PAMOATE 50 MG CAPSULE (FP) PO PRN ×2 (09:48→21:17)
[2017-12-22] MEDS: NICOTINE 21 MG/24 HOURS TOPICAL PATCH TD SCH (09:49)
[2017-12-22] MEDS: THIAMINE HCL 100 MG TABLET (FP) PO SCH (21:17)
[2017-12-22] MEDS: MELATONIN 5 MG TABLETS PO PRN (21:17)
[2017-12-23] MEDS: hydrOXYzine PAMOATE 50 MG CAPSULE (FP) PO PRN ×3 (02:38→21:25)
[2017-12-23] MEDS ORDERED: METHADONE HCL 5 MG TABLET ONE (03:34)
[2017-12-23] MEDS ORDERED: METHADONE HCL 10 MG TABLET ONE (03:35)
[2017-12-23] MEDS ORDERED: METHADONE HCL 40 MG DISPERSABLE TABLET ONE (03:35)
[2017-12-23] MEDS: METHADONE 160 MG, METHADONE 20 MG, METHADONE 5 MG PO SCH (06:56)
[2017-12-23] MEDS: PRENATAL VITAMINS W/ FOLIC ACID TABLET (FP) PO SCH (10:40)
[2017-12-23] MEDS: PERPHENAZINE 4 MG TABLET PO SCH ×2 (10:40→21:25)
[2017-12-23] MEDS: NICOTINE 21 MG/24 HOURS TOPICAL PATCH TD SCH (10:42)
[2017-12-23] MEDS: IBUPROFEN 400 MG TABLET (FP) PO PRN ×2 (10:46→17:52)
--- NOTE | 2017-12-23 13:01 | PN ---
S Progress Note Note: Patient c/o of pain on the bottom of his left foot worsening when bearing weight. Denies vertigo, CP , SOB, or paresthesia. Vital Signs Temperature 98.2 F 12/23/17 06:33 Pulse Rate 68 12/23/17 06:33 Respiratory Rate 18 12/23/17 06:33 Blood Pressure 107/73 12/23/17 06:33 O2 Sat by Pulse Oximetry (%) Laboratory Last Values WBC 8.4 K/mm3 (4.0-10.0) 12/19/17 07:30 RBC 4.35 M/mm3 (4.00-5.60) 12/19/17 07:30 Hgb 13.5 GM/dL (11.7-16.9) 12/19/17 07:30 Hct 40.7 % (35.4-49) 12/19/17 07:30 MCV 93.5 fl (80-96) 12/19/17 07:30 MCH 31.0 pg (25.7-33.7) 12/19/17 07:30 MCHC 33.1 g/dl (32.0-35.9) 12/19/17 07:30 RDW 13.4 % (11.9-15.9) 12/19/17 07:30 Plt Count 161 K/MM3 (134-434) 12/19/17 07:30 MPV 10.1 fl (7.5-11.1) 12/19/17 07:30 Sodium 142 mmol/L (136-145) 12/19/17 07:30 Potassium 4.1 mmol/L (3.5-5.1) 12/19/17 07:30 Chloride 103 mmol/L (98-107) 12/19/17 07:30 Carbon Dioxide 32 mmol/L (21-32) 12/19/17 07:30 Anion Gap 7 (8-16) L 12/19/17 07:30 BUN 14 mg/dL (7-18) 12/19/17 07:30 Creatinine 0.9 mg/dL (0.7-1.3) 12/19/17 07:30 Creat Clearance w eGFR > 60 (>60) 12/19/17 07:30 Random Glucose 152 mg/dL (74-106) H D 12/19/17 07:30 Calcium 9.0 mg/dL (8.5-10.1) 12/19/17 07:30 Total Bilirubin 0.5 mg/dL (0.2-1.0) D 12/19/17 07:30 AST 20 U/L (15-37) 12/19/17 07:30 ALT 19 U/L (12-78) D 12/19/17 07:30 Alkaline Phosphatase 56 U/L (45-117) 12/19/17 07:30 Total Protein 6.7 g/dl (6.4-8.2) 12/19/17 07:30 Albumin 3.4 g/dl (3.4-5.0) 12/19/17 07:30 RPR Titer Nonreactive (NONREACTIVE) 12/19/17 07:30 A/P Patient AOx3 in no apparent distress Normal HR and Rhythm No JVD, pulses present through out Lungs clear through out no adventitious breath sounds + (L) heel pain Skin intact, hyperpigmentation b/l lower extremities, + mild hematoma and callus on the left heal left heel pain Plan: can for ambulation to relive pressure of foot tylenol PRN cold compress PRN continue to monitor
--- NOTE | 2017-12-23 13:03 | PN ---
BHS Progress Note Note: elevated random glucose 152. BGM BID continue to monitor
[2017-12-23 18:33] LABS: URINE APPEARANCE CLEAR; URINE BILIRUBIN NEGATIVE (<2.0 mg/dL); URINE COLOR LTYELLOW; URINE GLUCOSE (UA) NEGATIVE (NEGATIVE); URINE KETONE NEGATIVE (NEGATIVE); URINE LEUK ESTERASE TRACE (NEGATIVE); URINE NITRITE NEGATIVE (NEGATIVE); URINE PROTEIN NEGATIVE (NEGATIVE); URINE UROBILINOGEN NEGATIVE mg/dL (0.2-1.0)
[2017-12-23] MEDS: THIAMINE HCL 100 MG TABLET (FP) PO SCH (21:25)
[2017-12-23] MEDS: MELATONIN 5 MG TABLETS PO PRN (21:26)
[2017-12-24] MEDS ORDERED: METHADONE HCL 10 MG TABLET ONE (03:19)
[2017-12-24] MEDS ORDERED: METHADONE HCL 40 MG DISPERSABLE TABLET ONE (03:19)
[2017-12-24] MEDS ORDERED: METHADONE HCL 5 MG TABLET ONE (03:19)
[2017-12-24] MEDS: METHADONE 160 MG, METHADONE 20 MG, METHADONE 5 MG PO SCH (06:10)
[2017-12-24] MEDS: INSULIN SLIDING SCALE (NOVOLOG) 1 VIAL SQ SCH ×2 (06:14→17:00)
[2017-12-24] MEDS ORDERED: INSULIN (NOVOLOG) ASPART 100 UNITS/ML 10ML VIAL ONE ×2 (06:36→17:01)
[2017-12-24] MEDS: PRENATAL VITAMINS W/ FOLIC ACID TABLET (FP) PO SCH (10:37)
[2017-12-24] MEDS: PERPHENAZINE 4 MG TABLET PO SCH ×2 (10:37→21:30)
[2017-12-24] MEDS: NICOTINE 21 MG/24 HOURS TOPICAL PATCH TD SCH (10:38)
[2017-12-24] MEDS: hydrOXYzine PAMOATE 50 MG CAPSULE (FP) PO PRN ×2 (10:39→21:30)
--- NOTE | 2017-12-24 13:19 | PN ---
BHS Progress Note Note: Vital Signs Temperature 98.6 F 12/24/17 06:32 Pulse Rate 78 12/24/17 06:32 Respiratory Rate 16 12/24/17 06:32 Blood Pressure 109/81 12/24/17 06:32 O2 Sat by Pulse Oximetry (%) Patient with A1C 6.1. BGM check BIDAC. Diet Non-concentrated sweats. continue to monitor. follow up with PMD upon d/c
[2017-12-24] MEDS: MELATONIN 5 MG TABLETS PO PRN (21:30)
[2017-12-24] MEDS: THIAMINE HCL 100 MG TABLET (FP) PO SCH (21:30)
[2017-12-25] MEDS ORDERED: METHADONE HCL 5 MG TABLET ONE (05:50)
[2017-12-25] MEDS ORDERED: METHADONE HCL 10 MG TABLET ONE (05:51)
[2017-12-25] MEDS ORDERED: METHADONE HCL 40 MG DISPERSABLE TABLET ONE (05:51)
[2017-12-25] MEDS: METHADONE 160 MG, METHADONE 20 MG, METHADONE 5 MG PO SCH (06:14)
[2017-12-25] MEDS: NICOTINE 21 MG/24 HOURS TOPICAL PATCH TD SCH (10:11)
[2017-12-25] MEDS: PERPHENAZINE 4 MG TABLET PO SCH ×2 (10:11→21:18)
[2017-12-25] MEDS: PRENATAL VITAMINS W/ FOLIC ACID TABLET (FP) PO SCH (10:11)
[2017-12-25] MEDS: INSULIN SLIDING SCALE (NOVOLOG) 1 VIAL SQ SCH ×2 (14:06→16:59)
[2017-12-25] MEDS ORDERED: INSULIN (NOVOLOG) ASPART 100 UNITS/ML 10ML VIAL ONE (16:59)
[2017-12-25] MEDS: hydrOXYzine PAMOATE 50 MG CAPSULE (FP) PO PRN (21:18)
[2017-12-25] MEDS: MELATONIN 5 MG TABLETS PO PRN (21:19)
[2017-12-25] MEDS: THIAMINE HCL 100 MG TABLET (FP) PO SCH (21:19)
[2017-12-26] MEDS ORDERED: METHADONE HCL 5 MG TABLET ONE (05:04)
[2017-12-26] MEDS ORDERED: METHADONE HCL 40 MG DISPERSABLE TABLET ONE (05:04)
[2017-12-26] MEDS ORDERED: METHADONE HCL 10 MG TABLET ONE (05:04)
[2017-12-26] MEDS: METHADONE 160 MG, METHADONE 20 MG, METHADONE 5 MG PO SCH (06:21)
[2017-12-26] MEDS ORDERED: INSULIN (NOVOLOG) ASPART 100 UNITS/ML 10ML VIAL ONE ×2 (07:19→17:01)
[2017-12-26] MEDS: INSULIN SLIDING SCALE (NOVOLOG) 1 VIAL SQ SCH ×2 (07:31→16:59)
[2017-12-26] MEDS: PRENATAL VITAMINS W/ FOLIC ACID TABLET (FP) PO SCH (10:07)
[2017-12-26] MEDS: NICOTINE 21 MG/24 HOURS TOPICAL PATCH TD SCH (10:07)
[2017-12-26] MEDS: hydrOXYzine PAMOATE 50 MG CAPSULE (FP) PO PRN ×2 (10:08→21:25)
[2017-12-26] MEDS: PERPHENAZINE 4 MG TABLET PO SCH ×2 (10:08→21:23)
[2017-12-26] MEDS: THIAMINE HCL 100 MG TABLET (FP) PO SCH (21:23)
[2017-12-26] MEDS: MELATONIN 5 MG TABLETS PO PRN (21:24)
[2017-12-27] MEDS ORDERED: METHADONE HCL 5 MG TABLET ONE (05:38)
[2017-12-27] MEDS ORDERED: METHADONE HCL 10 MG TABLET ONE (05:38)
[2017-12-27] MEDS ORDERED: METHADONE HCL 40 MG DISPERSABLE TABLET ONE (05:39)
[2017-12-27] MEDS: METHADONE 160 MG, METHADONE 20 MG, METHADONE 5 MG PO SCH (07:25)
[2017-12-27] MEDS: INSULIN SLIDING SCALE (NOVOLOG) 1 VIAL SQ SCH ×2 (07:35→16:53)
[2017-12-27] MEDS: PERPHENAZINE 4 MG TABLET PO SCH ×2 (10:15→21:15)
[2017-12-27] MEDS: PRENATAL VITAMINS W/ FOLIC ACID TABLET (FP) PO SCH (10:15)
[2017-12-27] MEDS: NICOTINE 21 MG/24 HOURS TOPICAL PATCH TD SCH (10:16)
[2017-12-27] MEDS ORDERED: INSULIN (NOVOLOG) ASPART 100 UNITS/ML 10ML VIAL ONE (16:58)
[2017-12-27] MEDS: THIAMINE HCL 100 MG TABLET (FP) PO SCH (21:15)
[2017-12-27] MEDS: hydrOXYzine PAMOATE 50 MG CAPSULE (FP) PO PRN (21:16)
[2017-12-27] MEDS: MELATONIN 5 MG TABLETS PO PRN (21:16)
[2017-12-28] MEDS ORDERED: METHADONE HCL 10 MG TABLET ONE (03:23)
[2017-12-28] MEDS ORDERED: METHADONE HCL 40 MG DISPERSABLE TABLET ONE (03:23)
[2017-12-28] MEDS ORDERED: METHADONE HCL 5 MG TABLET ONE (03:23)
[2017-12-28] MEDS: INSULIN SLIDING SCALE (NOVOLOG) 1 VIAL SQ SCH ×2 (06:21→16:43)
[2017-12-28] MEDS: METHADONE 160 MG, METHADONE 20 MG, METHADONE 5 MG PO SCH (06:22)
[2017-12-28] MEDS: PRENATAL VITAMINS W/ FOLIC ACID TABLET (FP) PO SCH (10:03)
[2017-12-28] MEDS: PERPHENAZINE 4 MG TABLET PO SCH ×2 (10:03→21:22)
[2017-12-28] MEDS: NICOTINE 21 MG/24 HOURS TOPICAL PATCH TD SCH (10:05)
[2017-12-28] MEDS ORDERED: INSULIN (NOVOLOG) ASPART 100 UNITS/ML 10ML VIAL ONE (16:44)
[2017-12-28] MEDS: THIAMINE HCL 100 MG TABLET (FP) PO SCH (21:22)
[2017-12-28] MEDS: MELATONIN 5 MG TABLETS PO PRN (21:22)
[2017-12-28] MEDS: hydrOXYzine PAMOATE 50 MG CAPSULE (FP) PO PRN (21:22)
[2017-12-29] MEDS ORDERED: METHADONE HCL 5 MG TABLET ONE (03:49)
[2017-12-29] MEDS ORDERED: METHADONE HCL 10 MG TABLET ONE (03:49)
[2017-12-29] MEDS ORDERED: METHADONE HCL 40 MG DISPERSABLE TABLET ONE (03:49)
[2017-12-29] MEDS: METHADONE 160 MG, METHADONE 20 MG, METHADONE 5 MG PO SCH (06:28)
[2017-12-29] MEDS: INSULIN SLIDING SCALE (NOVOLOG) 1 VIAL SQ SCH ×2 (06:30→17:11)
[2017-12-29] MEDS: hydrOXYzine PAMOATE 50 MG CAPSULE (FP) PO PRN ×3 (09:47→21:08)
[2017-12-29] MEDS: NICOTINE 21 MG/24 HOURS TOPICAL PATCH TD SCH (09:47)
[2017-12-29] MEDS: PERPHENAZINE 4 MG TABLET PO SCH ×2 (09:47→21:06)
[2017-12-29] MEDS: PRENATAL VITAMINS W/ FOLIC ACID TABLET (FP) PO SCH (09:47)
[2017-12-29] MEDS ORDERED: INSULIN (NOVOLOG) ASPART 100 UNITS/ML 10ML VIAL ONE (17:12)
[2017-12-29] MEDS: THIAMINE HCL 100 MG TABLET (FP) PO SCH (21:06)
[2017-12-29] MEDS: MELATONIN 5 MG TABLETS PO PRN (21:08)
[2017-12-30] MEDS ORDERED: METHADONE HCL 40 MG DISPERSABLE TABLET ONE (04:29)
[2017-12-30] MEDS ORDERED: METHADONE HCL 10 MG TABLET ONE (04:29)
[2017-12-30] MEDS ORDERED: METHADONE HCL 5 MG TABLET ONE (04:29)
[2017-12-30] MEDS: INSULIN SLIDING SCALE (NOVOLOG) 1 VIAL SQ SCH ×2 (07:00→17:06)
[2017-12-30] MEDS: METHADONE 160 MG, METHADONE 20 MG, METHADONE 5 MG PO SCH (07:02)
[2017-12-30] MEDS: PRENATAL VITAMINS W/ FOLIC ACID TABLET (FP) PO SCH (10:09)
[2017-12-30] MEDS: NICOTINE 21 MG/24 HOURS TOPICAL PATCH TD SCH (10:10)
[2017-12-30] MEDS: PERPHENAZINE 4 MG TABLET PO SCH ×2 (10:10→21:20)
[2017-12-30] MEDS: hydrOXYzine PAMOATE 50 MG CAPSULE (FP) PO PRN ×2 (10:12→21:19)
[2017-12-30] MEDS ORDERED: INSULIN (NOVOLOG) ASPART 100 UNITS/ML 10ML VIAL ONE (17:06)
[2017-12-30] MEDS: MELATONIN 5 MG TABLETS PO PRN (21:20)
[2017-12-30] MEDS: THIAMINE HCL 100 MG TABLET (FP) PO SCH (21:20)
[2017-12-31] MEDS ORDERED: METHADONE HCL 5 MG TABLET ONE (05:08)
[2017-12-31] MEDS ORDERED: METHADONE HCL 10 MG TABLET ONE (05:09)
[2017-12-31] MEDS ORDERED: METHADONE HCL 40 MG DISPERSABLE TABLET ONE (05:09)
[2017-12-31] MEDS: INSULIN SLIDING SCALE (NOVOLOG) 1 VIAL SQ SCH ×2 (07:06→16:35)
[2017-12-31] MEDS: METHADONE 160 MG, METHADONE 20 MG, METHADONE 5 MG PO SCH (07:18)
[2017-12-31] MEDS ORDERED: INSULIN (NOVOLOG) ASPART 100 UNITS/ML 10ML VIAL ONE ×2 (07:37→16:35)
[2017-12-31] MEDS: NICOTINE 21 MG/24 HOURS TOPICAL PATCH TD SCH (10:15)
[2017-12-31] MEDS: PERPHENAZINE 4 MG TABLET PO SCH ×2 (10:15→21:30)
[2017-12-31] MEDS: PRENATAL VITAMINS W/ FOLIC ACID TABLET (FP) PO SCH (10:15)
[2017-12-31] MEDS: hydrOXYzine PAMOATE 50 MG CAPSULE (FP) PO PRN ×2 (10:16→21:32)
[2017-12-31] MEDS: THIAMINE HCL 100 MG TABLET (FP) PO SCH (21:30)
[2017-12-31] MEDS: MELATONIN 5 MG TABLETS PO PRN (21:31)
[2018-01-01] MEDS ORDERED: METHADONE HCL 10 MG TABLET ONE (04:38)
[2018-01-01] MEDS ORDERED: METHADONE HCL 5 MG TABLET ONE (04:38)
[2018-01-01] MEDS ORDERED: METHADONE HCL 40 MG DISPERSABLE TABLET ONE (04:39)
[2018-01-01] MEDS: METHADONE 160 MG, METHADONE 20 MG, METHADONE 5 MG PO SCH (06:59)
[2018-01-01] MEDS: INSULIN SLIDING SCALE (NOVOLOG) 1 VIAL SQ SCH ×2 (07:00→16:54)
[2018-01-01] MEDS: PERPHENAZINE 4 MG TABLET PO SCH ×2 (09:46→21:21)
[2018-01-01] MEDS: PRENATAL VITAMINS W/ FOLIC ACID TABLET (FP) PO SCH (09:46)
[2018-01-01] MEDS: NICOTINE 21 MG/24 HOURS TOPICAL PATCH TD SCH (09:46)
[2018-01-01] MEDS: hydrOXYzine PAMOATE 50 MG CAPSULE (FP) PO PRN ×2 (09:48→21:21)
--- NOTE | 2018-01-01 13:54 | PN ---
BHS Progress Note Note: Patient presents with pain to bottom of left foot. Patient ambulates with cane. Has hx of DM. Patient is alert and oriented x 3. In no acute distress. Exam: BLE without edema. Left foot dry and intact. Guevara size intact ecchymotic area noted on plantar aspect. No redness or swelling noted. +tenderness. No open areas. Pt encouraged to follow up with PCP upon discharge and to elevated feet while in bed. May use wheelchair if needed to avoid pressure to foot. Continue to monitor clinically.
[2018-01-01] MEDS: THIAMINE HCL 100 MG TABLET (FP) PO SCH (21:21)
[2018-01-01] MEDS: MELATONIN 5 MG TABLETS PO PRN (21:22)
[2018-01-02] MEDS: hydrOXYzine PAMOATE 50 MG CAPSULE (FP) PO PRN ×3 (01:32→21:33)
[2018-01-02] MEDS ORDERED: METHADONE HCL 5 MG TABLET ONE (05:53)
[2018-01-02] MEDS ORDERED: METHADONE HCL 10 MG TABLET ONE (05:53)
[2018-01-02] MEDS ORDERED: METHADONE HCL 40 MG DISPERSABLE TABLET ONE (05:53)
[2018-01-02] MEDS: METHADONE 160 MG, METHADONE 20 MG, METHADONE 5 MG PO SCH (06:37)
[2018-01-02] MEDS ORDERED: INSULIN (NOVOLOG) ASPART 100 UNITS/ML 10ML VIAL ONE (07:47)
[2018-01-02] MEDS: INSULIN SLIDING SCALE (NOVOLOG) 1 VIAL SQ SCH ×2 (07:48→16:54)
[2018-01-02] MEDS: NICOTINE 21 MG/24 HOURS TOPICAL PATCH TD SCH (09:40)
[2018-01-02] MEDS: PRENATAL VITAMINS W/ FOLIC ACID TABLET (FP) PO SCH (09:40)
[2018-01-02] MEDS: PERPHENAZINE 4 MG TABLET PO SCH ×2 (09:40→21:33)
[2018-01-02] MEDS: IBUPROFEN 400 MG TABLET (FP) PO PRN (17:58)
[2018-01-02] MEDS: MELATONIN 5 MG TABLETS PO PRN (21:33)
[2018-01-02] MEDS: THIAMINE HCL 100 MG TABLET (FP) PO SCH (21:33)
[2018-01-03] MEDS ORDERED: METHADONE HCL 5 MG TABLET ONE (04:46)
[2018-01-03] MEDS ORDERED: METHADONE HCL 10 MG TABLET ONE (04:46)
[2018-01-03] MEDS ORDERED: METHADONE HCL 40 MG DISPERSABLE TABLET ONE (04:47)
[2018-01-03] MEDS: INSULIN SLIDING SCALE (NOVOLOG) 1 VIAL SQ SCH ×2 (07:13→16:59)
[2018-01-03] MEDS: METHADONE 160 MG, METHADONE 20 MG, METHADONE 5 MG PO SCH (07:13)
[2018-01-03] MEDS: PRENATAL VITAMINS W/ FOLIC ACID TABLET (FP) PO SCH (10:09)
[2018-01-03] MEDS: NICOTINE 21 MG/24 HOURS TOPICAL PATCH TD SCH (10:09)
[2018-01-03] MEDS: PERPHENAZINE 4 MG TABLET PO SCH ×2 (10:09→21:48)
[2018-01-03] MEDS: hydrOXYzine PAMOATE 50 MG CAPSULE (FP) PO PRN ×3 (10:10→21:47)
[2018-01-03] MEDS: IBUPROFEN 400 MG TABLET (FP) PO PRN (17:45)
[2018-01-03] MEDS: MELATONIN 5 MG TABLETS PO PRN (21:48)
[2018-01-03] MEDS: THIAMINE HCL 100 MG TABLET (FP) PO SCH (21:48)
[2018-01-04] MEDS ORDERED: METHADONE HCL 5 MG TABLET ONE (04:38)
[2018-01-04] MEDS ORDERED: METHADONE HCL 10 MG TABLET ONE (04:39)
[2018-01-04] MEDS ORDERED: METHADONE HCL 40 MG DISPERSABLE TABLET ONE (04:39)
[2018-01-04] MEDS: INSULIN SLIDING SCALE (NOVOLOG) 1 VIAL SQ SCH ×2 (06:29→16:45)
[2018-01-04] MEDS: METHADONE 160 MG, METHADONE 20 MG, METHADONE 5 MG PO SCH (06:30)
[2018-01-04] MEDS: PRENATAL VITAMINS W/ FOLIC ACID TABLET (FP) PO SCH (10:17)
[2018-01-04] MEDS: PERPHENAZINE 4 MG TABLET PO SCH ×2 (10:17→21:21)
[2018-01-04] MEDS: NICOTINE 21 MG/24 HOURS TOPICAL PATCH TD SCH (10:18)
[2018-01-04] MEDS: hydrOXYzine PAMOATE 50 MG CAPSULE (FP) PO PRN ×2 (10:19→21:21)
[2018-01-04] MEDS: MELATONIN 5 MG TABLETS PO PRN (21:21)
[2018-01-04] MEDS: THIAMINE HCL 100 MG TABLET (FP) PO SCH (21:21)
[2018-01-05] MEDS ORDERED: METHADONE HCL 5 MG TABLET ONE (04:35)
[2018-01-05] MEDS ORDERED: METHADONE HCL 10 MG TABLET ONE (04:36)
[2018-01-05] MEDS ORDERED: METHADONE HCL 40 MG DISPERSABLE TABLET ONE (04:37)
[2018-01-05] MEDS: METHADONE 160 MG, METHADONE 20 MG, METHADONE 5 MG PO SCH (06:52)
[2018-01-05] MEDS: INSULIN SLIDING SCALE (NOVOLOG) 1 VIAL SQ SCH ×2 (07:12→17:34)
[2018-01-05] MEDS: PERPHENAZINE 4 MG TABLET PO SCH ×2 (10:10→21:22)
[2018-01-05] MEDS: PRENATAL VITAMINS W/ FOLIC ACID TABLET (FP) PO SCH (10:10)
[2018-01-05] MEDS: NICOTINE 21 MG/24 HOURS TOPICAL PATCH TD SCH (10:10)
[2018-01-05] MEDS: hydrOXYzine PAMOATE 50 MG CAPSULE (FP) PO PRN ×2 (10:11→21:22)
[2018-01-05] MEDS ORDERED: INSULIN (NOVOLOG) ASPART 100 UNITS/ML 10ML VIAL ONE (16:48)
--- NOTE | 2018-01-05 18:07 | PN ---
S Progress Note Note: bgm 318,refused insulin,will give metformin 500 mgs po now then bid,bgm monitoring
[2018-01-05] MEDS ORDERED: metFORMIN HCL 500 MG TABLET (FP) PO ONE (18:15)
[2018-01-05] MEDS: MELATONIN 5 MG TABLETS PO PRN (21:22)
[2018-01-05] MEDS: THIAMINE HCL 100 MG TABLET (FP) PO SCH (21:22)
[2018-01-06] MEDS ORDERED: METHADONE HCL 5 MG TABLET ONE (04:19)
[2018-01-06] MEDS ORDERED: METHADONE HCL 10 MG TABLET ONE (04:20)
[2018-01-06] MEDS ORDERED: METHADONE HCL 40 MG DISPERSABLE TABLET ONE (04:20)
[2018-01-06] MEDS: METHADONE 160 MG, METHADONE 20 MG, METHADONE 5 MG PO SCH (05:39)
[2018-01-06] MEDS: INSULIN SLIDING SCALE (NOVOLOG) 1 VIAL SQ SCH ×2 (06:36→16:33)
[2018-01-06] MEDS: metFORMIN HCL 500 MG TABLET (FP) PO SCH ×2 (06:36→16:33)
[2018-01-06] MEDS: NICOTINE 21 MG/24 HOURS TOPICAL PATCH TD SCH (10:08)
[2018-01-06] MEDS: PRENATAL VITAMINS W/ FOLIC ACID TABLET (FP) PO SCH (10:08)
[2018-01-06] MEDS: PERPHENAZINE 4 MG TABLET PO SCH ×2 (10:08→21:29)
[2018-01-06] MEDS: hydrOXYzine PAMOATE 50 MG CAPSULE (FP) PO PRN ×3 (10:10→21:30)
[2018-01-06] MEDS: MELATONIN 5 MG TABLETS PO PRN (21:30)
[2018-01-06] MEDS: THIAMINE HCL 100 MG TABLET (FP) PO SCH (21:30)
[2018-01-06] MEDS: IBUPROFEN 400 MG TABLET (FP) PO PRN (21:46)
[2018-01-07] MEDS ORDERED: METHADONE HCL 5 MG TABLET ONE (04:43)
[2018-01-07] MEDS ORDERED: METHADONE HCL 10 MG TABLET ONE (04:43)
[2018-01-07] MEDS ORDERED: METHADONE HCL 40 MG DISPERSABLE TABLET ONE (04:44)
[2018-01-07] MEDS: METHADONE 160 MG, METHADONE 20 MG, METHADONE 5 MG PO SCH (06:30)
[2018-01-07] MEDS: metFORMIN HCL 500 MG TABLET (FP) PO SCH ×2 (06:31→16:52)
[2018-01-07] MEDS: INSULIN SLIDING SCALE (NOVOLOG) 1 VIAL SQ SCH ×2 (07:00→16:54)
[2018-01-07] MEDS: PRENATAL VITAMINS W/ FOLIC ACID TABLET (FP) PO SCH (10:37)
[2018-01-07] MEDS: PERPHENAZINE 4 MG TABLET PO SCH ×2 (10:37→21:23)
[2018-01-07] MEDS: NICOTINE 21 MG/24 HOURS TOPICAL PATCH TD SCH (10:38)
[2018-01-07] MEDS: hydrOXYzine PAMOATE 50 MG CAPSULE (FP) PO PRN ×2 (16:53→21:23)
[2018-01-07] MEDS: MELATONIN 5 MG TABLETS PO PRN (21:23)
[2018-01-07] MEDS: THIAMINE HCL 100 MG TABLET (FP) PO SCH (21:23)
[2018-01-08] MEDS ORDERED: METHADONE HCL 5 MG TABLET ONE (05:39)
[2018-01-08] MEDS ORDERED: METHADONE HCL 40 MG DISPERSABLE TABLET ONE (05:40)
[2018-01-08] MEDS ORDERED: METHADONE HCL 10 MG TABLET ONE (05:40)
[2018-01-08] MEDS ORDERED: METHADONE 160 MG, METHADONE 20 MG, METHADONE 5 MG PO SCH (06:00)
[2018-01-08 06:39] VITALS: BP 107/74; PULSE 75; TEMP 98.3
[2018-01-08] MEDS: metFORMIN HCL 500 MG TABLET (FP) PO SCH (07:17)
[2018-01-08] MEDS: INSULIN SLIDING SCALE (NOVOLOG) 1 VIAL SQ SCH (07:17)
[2018-01-08] MEDS: PERPHENAZINE 4 MG TABLET PO SCH (09:52)
[2018-01-08] MEDS: PRENATAL VITAMINS W/ FOLIC ACID TABLET (FP) PO SCH (09:52)
[2018-01-08] MEDS: NICOTINE 21 MG/24 HOURS TOPICAL PATCH TD SCH (09:53)
--- NOTE | 2018-01-08 09:56 | PN ---
Psychiatric Progress Note Vital Signs: Vital Signs Period Temp Pulse Resp BP Sys/Peck Pulse Ox Last 24 Hr 98.3 F 75 18-18 107/74 Date of Session: 01/08/18 Chief Complaint:: "Discharge" HPI: Patient was admitted to for marijuana and cocaine dependence. ROS: Diabetes mellitus,dyslipidemia,antecedent of head trauma and seizures, hepatitis C (untreated) and hypertension. Current Medications: Active Medications Generic Name Dose Route Start Last Admin Trade Name Freq PRN Reason Stop Dose Admin Acetaminophen 650 mg 12/19/17 19:09 Tylenol - PO Q4H PRN FEVER Al Hydroxide/Mg Hydroxide 30 ml 12/19/17 19:07 Mylanta Oral Suspension - PO Q6H PRN DYSPEPSIA Eucalyptus/Menthol/Phenol/Sorbitol 1 each 12/19/17 19:11 Cepastat Lozenge - MM Q4H PRN SORE THROAT Guaifenesin 10 ml 12/19/17 19:07 Robitussin Dm - PO Q6H PRN COUGH Hydroxyzine Pamoate 50 mg 12/19/17 19:07 01/07/18 21:23 Vistaril - PO 50 mg Q4H PRN Administration AGITATION Ibuprofen 400 mg 12/19/17 19:10 01/06/18 21:46 Motrin - PO 400 mg Q6H PRN Administration Pain level 4-6 Insulin Aspart 1 vial 12/24/17 07:00 01/08/18 07:17 Novolog Vial Sliding Scale - SQ Not Given BIDAC [facility] Protocol Loperamide HCl 4 mg 12/19/17 19:07 Imodium - PO Q6H PRN DIARRHEA Magnesium Citrate 300 ml 12/19/17 19:07 Citroma - PO Q48H PRN CONSTIPATION Magnesium Hydroxide 30 ml 12/19/17 19:07 Milk Of Magnesia - PO DAILY PRN CONSTIPATION Melatonin 5 mg 12/19/17 22:00 01/07/18 21:23 Melatonin PO 5 mg HS PRN Administration INSOMNIA Metformin HCl 500 mg 01/06/18 07:00 01/08/18 07:17 Glucophage - PO Not Given BID@0700,1630 FLOWER Methadone HCl 160 mg/ 185 mg 01/08/18 06:00 01/08/18 06:57 Methadone HCl 20 mg/ Methadone PO 01/14/18 05:59 185 mg HCl 5 mg DAILY@0600 FLOWER Administration Nicotine 21 mg 12/20/17 10:00 01/08/18 09:53 Nicoderm Patch - TD Not Given DAILY FLOWER Nicotine Polacrilex 4 mg 12/19/17 19:07 Nicorette Gum - BUC Q2H PRN NICOTINE REPLACEMENT RX Perphenazine 8 mg 12/21/17 10:00 01/08/18 09:52 Trilafon PO 8 mg DAILY FLOWER Administration Perphenazine 16 mg 12/20/17 22:00 01/07/18 21:23 Trilafon PO 16 mg HS FLOWER Administration Multivit/Folic Acid/Iron 1 tab 12/20/17 10:00 01/08/18 09:52 Vitamins (Sjr) - PO 1 tab DAILY FLOWER Administration Pseudoephedrine/Triprolidine 1 combo 12/19/17 19:07 Actifed - PO TID PRN NASAL CONGESTION Thiamine HCl 100 mg 12/19/17 22:00 01/07/18 21:23 Vitamin B1 - PO 100 mg HS FLOWER Administration Medication(s) Change(s): No. Current Side Effect: No Lab tests ordered: No Lab tests reviewed: Yes Provider note:: Patient will be given an early discharge on 01/08/18. Pt. has met his treatment goals and will continue to address his issues at the [facility] methadone program. Patient is able to identify behaviors which contribute to relapse and has developed skills he can utilize to maintain recovery. Patient reports finding Trilafon 8mg PO daily + Trilafon 16mg qhs effective. An electronic prescription for 30 days was sent to [facility] at [address] [place] [address], [facility]. Pt. is stable for discharge. Total face to face time:: 35 Mental Status Exam - Mental Status Exam Alert and Oriented to: Time, Place, Person Cognitive Function: Good Patient Appearance: Well Groomed Mood: Hopeful, Euthymic Affect: Mood Congruent Patient Behavior: Appropriate Speech Pattern: Appropriate Voice Loudness: Normal Thought Process: Intact, Goal Oriented Thought Disorder: Not Present Hallucinations: Denies Suicidal Ideation: Denies Homicidal Ideation: Denies Insight/Judgement: Good Sleep: Well Appetite: Good Muscle strength/Tone: Normal Gait/Station: Normal Psychiatric Treatment Plan - Problem List (1) Cocaine dependence Current Visit: Yes Qualifiers: Substance use status: uncomplicated (2) Methadone maintenance therapy patient Current Visit: Yes (3) Nicotine dependence Current Visit: Yes Qualifiers: Nicotine product type: cigarettes Substance use status: uncomplicated Qualified Code(s): F17.210 - Nicotine dependence, cigarettes, uncomplicated (4) Opioid dependence on agonist therapy Current Visit: No (5) Schizophrenia Current Visit: Yes
== END 2018-01-08 11:00 | disposition home or self-care (01) | DRG 772 ==
LOC: YASAS 13:43 → Y5N 17:52
PROVIDERS: ADMIT Psychiatry & Neurology Psychiatry; ATTEND Psychiatry & Neurology Psychiatry
PROC: HZ42ZZZ Group Counseling for Substance Abuse Treatment, Cognitive-Behavioral (ICD-10-PCS; principal; 2017-12-19)
DX: F14.20 Cocaine dependence, uncomplicated (principal); F11.20 Opioid dependence, uncomplicated; F12.20 Cannabis dependence, uncomplicated; F17.210 Nicotine dependence, cigarettes, uncomplicated; F20.9 Schizophrenia, unspecified; E11.65 Type 2 diabetes mellitus with hyperglycemia; B18.2 Chronic viral hepatitis C; M79.672 Pain in left foot; Z86.69 Personal history of other diseases of the nervous system and sense organs; Z91.5 Personal history of self-harm
CPT/HCPCS: 36415; 80053; 81003; 81015; 82962; 83036; 85027; 86593; 93005; 93010